=== PATIENT | female | born 2000 | race Caucasian/White ===

== ENCOUNTER 2021-03-27 11:21 | Emergency (ER) | payer OTHER ==
[~2021-03-27] VITALS: Ht 160 cm; Wt 50.8 kg
[2021-03-27] MEDS ORDERED: CHLORDIAZEPOXID25 MG PO (16:54)
== END 2021-03-27 17:17 | disposition home or self-care (01) ==
LOC: ER 11:21
DX: K52.9 Noninfective gastroenteritis and colitis, unspecified (principal); E86.0 Dehydration; F11.23 Opioid dependence with withdrawal